=== PATIENT | male | born 1990 | race African-American/Black ===

== ENCOUNTER 2020-06-15 18:13 | Emergency (ER) | payer SELFPAY ==
[~2020-06-15] VITALS: Ht 185.4 cm; Wt 73.0 kg
[2020-06-15] MEDS ORDERED: PIPERACILLIN/TAZOBACTAM 4.5 GM in IV NORMAL SALINE 100ML 100 ML IV ONE (18:45)
[2020-06-15] MEDS ORDERED: DEXAMETHASONE SOD PHOS 20 MG/5 ML VIAL. IV ONE (18:45)
[2020-06-15] MEDS ORDERED: VANCOMYCIN PER PHARMACY MC ONE (18:45)
[2020-06-15] MEDS ORDERED: IV NORMAL SALINE 1000ML BAG 1,000 ML IV ONE ×2 (18:45→20:30)
[2020-06-15] MEDS ORDERED: ONDANSETRON PF 4 MG/2 ML VIAL. IVP ONE (18:45)
[2020-06-15] MEDS ORDERED: MORPHINE SULFATE 4 MG/ML VIAL. IV/SQ PRN (18:45)
--- NOTE | 2020-06-15 18:53 | PHYS DOC ---
Past Medical History Past Medical History: No Pertinent History Past Surgical History: No Surgical History Smoking Status: Never Smoker Alcohol Use: None General Adult EDM: Chief Complaint: DENTAL PROBLEM HPI: HPI: Patient is a 29 year old male who presents to the ED today complaining of dental abscess to the left lower gum, patient states on Wednesday which is 4 days ago he had an extraction of the left lower wisdom tooth at [facility]. He states the next day he noted some facial swelling on the left side, he states the swelling has progressively gotten worse and today he realized his left facial region is extremely swollen. Denies any fever. Reports difficulty opening the mouth fully because of the pain. Reports pain is moderate worse on opening the mouth. Denies anything relieving the pain. He states he is currently on amoxicillin with no relief. Review of Systems: Review of Systems: Constitutional: Denies fever or chills. [] Eyes: Denies change in visual acuity. [] HENT: Reports left facial swelling, dental abscess, denies nasal congestion or sore throat. [] Respiratory: Denies cough or shortness of breath. [] Cardiovascular: Denies chest pain or edema. [] GI: Denies abdominal pain, nausea, vomiting, bloody stools or diarrhea. [] : Denies dysuria. [] Musculoskeletal: Denies back pain or joint pain. [] Integument: Denies rash. [] Neurologic: Denies headache, focal weakness or sensory changes. [] Psychiatric: Denies depression or anxiety. [] Heart Score: Risk Factors: Risk Factors: DM, Current or recent (<one month) smoker, HTN, HLP, family history of CAD, obesity. Risk Scores: Score 0 - 3: 2.5% MACE over next 6 weeks - Discharge Home Score 4 - 6: 20.3% MACE over next 6 weeks - Admit for Clinical Observation Score 7 - 10: 72.7% MACE over next 6 weeks - Early Invasive Strategies Current Medications: Current Medications Medications (Trade) Dose Ordered Sig/Jimi Start Time Stop Time Status Last Admin Dose Admin Dexamethasone Sodium Phosphate (Decadron) 10 mg 1X ONCE 06/15/20 18:45 06/15/20 18:46 UNV Morphine Sulfate (Morphine Sulfate) 4 mg PRN Q15MIN PRN 06/15/20 18:45 06/16/20 18:44 UNV Ondansetron HCl (Zofran) 4 mg 1X ONCE 06/15/20 18:45 06/15/20 18:46 UNV Piperacillin Sod/ Tazobactam Sod 4.5 gm/Sodium Chloride 100 ml @ 200 mls/hr 1X ONCE 06/15/20 18:45 06/15/20 19:14 UNV Sodium Chloride 1,000 ml @ 1,000 mls/hr 1X ONCE 06/15/20 18:45 06/15/20 19:44 UNV Vancomycin HCl (Vanco Per Pharmacy) 1 each 1X ONCE 06/15/20 18:45 06/15/20 18:46 UNV Physical Exam: PE: Constitutional: Well developed, well nourished, no acute distress, non-toxic appearance. [] HENT: Normocephalic, atraumatic, bilateral external ears normal, oropharynx moist, no oral exudates, nose normal. [] Left facial region is moderately swollen. Patient unable to open his mouth fully due to the swelling and pain. Unable to examine left lower wisdom tooth extraction site Eyes: PERRLA, EOMI, conjunctiva normal, no discharge. [] Neck: Normal range of motion, no tenderness, supple, no stridor. [] Cardiovascular:Heart rate regular rhythm, no murmur [] Lungs & Thorax: Bilateral breath sounds clear to auscultation [] Abdomen: Bowel sounds normal, soft, no tenderness, no masses, no pulsatile masses. [] Skin: Warm, dry, no erythema, no rash. [] Back: No tenderness, no CVA tenderness. [] Extremities: No tenderness, no cyanosis, no clubbing, ROM intact, no edema. [] Neurologic: Alert and oriented X 3, normal motor function, normal sensory function, no focal deficits noted. [] Psychologic: Affect normal, judgement normal, mood normal. [] Current Patient Data: Vital Signs: Vital Signs Date Time Temp Pulse Resp B/P (MAP) Pulse Ox O2 Delivery O2 Flow Rate FiO2 06/15/20 18:30 99.3 78 16 129/76 (93) 99 Room Air 99.3 EKG: EKG: [] Radiology/Procedures: Radiology/Procedures: []PATIENT: BEA AGUIAR DACCOUNT: [id number]#: [id number] : 1990 LOCATION: ER AGE: 29 SEX: M EXAM STATUS: REG ER ORD. PHYSICIAN: ILIANA HEATH APRN REASON: dental abscess left side facial swelling after extraction on Wed. PROCEDURE: CT MAXILLOFACIAL W/CONTRAST CT of maxillofacial with contrast. HISTORY: Dental abscess left facial swelling after obstruction on Wednesday CT scan of the maxillofacial region was done using 75 mL Omnipaque 300 contrast. There is mild mucosal thickening in the right maxillary sinus. There is mucosal thickening in the right frontal sinus versus mucous retention cyst. There is no intraorbital swelling. There is extensive soft tissue swelling including a focal gas containing collection in the left cheek consistent with a large abscess measuring 4.7 x 3.2 x 4.7 cm. Air tracks along the left mandible. Air and swelling tracking along the left masseter muscle into the temporal region extracranially on the left. There is also soft tissue swelling at the tonsil on the left but an abscess at that location is not identified. IMPRESSION: 1. Extensive soft tissue swelling in the cheek on the left side with gas in the soft tissues consistent with the extensive infection. PQRS Compliance Statement: One or more of the following individualized dose reduction techniques were utilized for this examination: 1. Automated exposure control 2. Adjustment of the mA and/or kV according to patient size 3. Use of iterative reconstruction technique Electronically signed by: Terrell Judd MD (06/15/2020 8:22 PM) [facility] DICTATED and SIGNED BY: TERRELL JUDD MD DATE: 06/15/20 [id number] 0 Course & Med Decision Making: Course & Med Decision Making Pertinent Labs and Imaging studies reviewed. (See chart for details) This is a 29-year-old male patient presenting to the ED today with moderate swelling on the left facial region after having left lower wisdom tooth extrac bhavana 4 days ago. Patient has developed a dental abscess. Vitals on arrival to the ED temperature 99.3, heart rate 78, O2 sats 99% on room air, respirations 16, blood pressure 129/76. CBC with a WBC of 22.3 with a left shift, CMP with potassium of 3.3, lactic 1.5, procalcitonin 1.93. CT of the maxillofacial noted for extensive soft tissue swelling in the cheek on the left side with gas in the soft tissues consistent with the extensive infection. Patient has been given 2 L of IV fluids, Zosyn and vancomycin. Called [facility] regarding tx to their facility they state they do not have an oral surgeon and requested we tx to [place] Spoke with Dr. Rodriguez at [facility] who accepted patient in the ED. EMS will transport Dr. German Becerril Disclaimer: Jone Disclaimer: This electronic medical record was generated, in whole or in part, using a voice recognition dictation system. Departure Departure Impression: Primary Impression: Dental abscess Additional Impression: Sepsis Qualified Codes: A41.9 - Sepsis, unspecified organism Disposition: DC/TRF OTHER TYPE INSTITUTI Condition: STABLE Referrals: NO PCP (PCP) Date and Time of Reassessment Date: Jun 15, 2020 Time: 18:40 Fluid Challenge Is the fluid challenge complet: No IBW Target Volume Used: No BMI > 30: No Vital Signs Vital Signs: Vital Signs Date Time Temp Pulse Resp B/P (MAP) Pulse Ox O2 Delivery O2 Flow Rate FiO2 06/15/20 19:16 15 99 06/15/20 18:30 99.3 78 129/76 (93) Room Air 99.3 Temperature Source: Oral Respirations Respiratory Effort: Normal Respiratory Pattern: Normal Cardiovascular Pulse Rhythm: Regular Heart: Nml rate, reg. rhythm Lung Sounds Breath Sounds: Clear Capillary Refil Capillary Refill: Rt Hand > 3 seconds Peripheral Pulse Pulse Location: Monitor Pulse Strength: Normal (2+) Pulse Assessment Method: NIBP Integumentary Skin: Warm Skin Moisture: Clammy Skin Turgor: Normal Skin Color: warm Fingernail Color: WNL ILIANA HEATH INSTRUMENT/CONTROL TECHNICIAN Jun 15, 2020 18:53
[2020-06-15 19:09] LABS: BASO # 0.1 x10^3/uL (0.0-0.2); BASO % 0 % (0-3); EOS # 0.1 x10^3/uL (0.0-0.7); EOS % 1 % (0-3); HEMATOCRIT 41.4 % (39.0-53.0); HEMOGLOBIN 14.2 g/dL (13.0-17.5); LYMPH # 3.4 x10^3/uL (1.0-4.8); LYMPH % 16 % (24-48); MEAN CORPUSCULAR HEMOGLOBIN 30 pg (25-35); MEAN CORPUSCULAR HGB CONC 34 g/dL (31-37); MEAN CORPUSCULAR VOLUME 88 fL (79-100); MONO # 2.2 x10^3/uL (0.0-1.1); MONO % 10 % (0-9); NEUT # 16.4 x10^3/uL (1.8-7.7); NEUT % 74 % (31-73); PLATELET COUNT 383 x10^3/uL (140-400); RED BLOOD COUNT 4.72 x10^6/uL (4.30-5.70); RED CELL DISTRIBUTION WIDTH 15.2 % (11.5-14.5); WHITE BLOOD COUNT 22.3 x10^3/uL (4.0-11.0)
[2020-06-15 19:22] LABS: CALCIUM 9.2 mg/dL (8.5-10.1); CREATININE 1.1 mg/dL (0.7-1.3); GFR 95.8; POTASSIUM 3.3 mmol/L (3.5-5.1)
[2020-06-15 19:28] LABS: ALBUMIN 2.9 g/dL (3.4-5.0); ALBUMIN/GLOBULIN RATIO 0.6 (1.0-1.7); MAGNESIUM 2.1 mg/dL (1.8-2.4); TOTAL BILIRUBIN 1.3 mg/dL (0.2-1.0); TOTAL PROTEIN 7.8 g/dL (6.4-8.2)
[2020-06-15] MEDS ORDERED: IOHEXOL 300 MG/ML 100ML VIAL. IV ONE (19:45)
[2020-06-15 19:51] LABS: % BANDS 9 % (0-9); % BASOS 1 % (0-3); % EOS 1 % (0-5); % LYMPHS 16 % (24-48); % MONOS 4 % (0-10); % SEGS 69 % (35-66)
[2020-06-15 19:52] LABS: PLT ESTIMATE ADEQUATE (ADEQUATE); TOXIC GRANULATION SLIGHT; TOXIC VACUOLATION SLIGHT
[2020-06-15] MEDS ORDERED: VANCOMYCIN 1.75 GM in IV NORMAL SALINE 500ML BAG 500 ML IV ONE (20:00)
[2020-06-15] MEDS ORDERED: CONTRAST GIVEN. MC PRN (20:15)
--- NOTE | 2020-06-15 20:26 | RAD ---
CT of maxillofacial with contrast. HISTORY: Dental abscess left facial swelling after obstruction on Wednesday CT scan of the maxillofacial region was done using 75 mL Omnipaque 300 contrast. There is mild mucosa l thickening in the right maxillary sinus. There is mucosal thickening in the right frontal sinus majo constantin mucous retention cyst. There is no intraorbital swelling. There is extensive soft tissue swelling including a focal gas containing collection in the left cheek consistent with a large abscess measur ing 4.7 x 3.2 x 4.7 cm. Air tracks along the left mandible. Air and swelling tracking along the left masseter muscle into the temporal region extracranially on the left. There is also soft tissue swelli ng at the tonsil on the left but an abscess at that location is not identified. IMPRESSION: 1. Extensive soft tissue swelling in the cheek on the left side with gas in the soft tissues consiste nt with the extensive infection. PQRS Compliance Statement: One or more of the following individualized dose reduction techniques were utilized for this examinat ion: 1. Automated exposure control 2. Adjustment of the mA and/or kV according to patient size 3. Use of iterative reconstruction technique Electronically signed by: Terrell Judd MD (06/15/2020 8:22 PM) [facility]
[2020-06-15 21:45] VITALS: BP 124/68
[2020-06-16] MEDS ORDERED: IOHEXOL 300 MG/ML 100ML VIAL. ONE (00:44)
== END 2020-06-15 21:45 | disposition short-term general hospital (02) ==
LOC: ER 18:13
DX: A41.9 Sepsis, unspecified organism (principal); K04.7 Periapical abscess without sinus
CPT/HCPCS: 36415; 70487; 80053; 83605; 83735; 84145; 85007; 85025; 87040; 96365; 96367; 96375; 99285; J1100; J2270; J2405; J2543; J3370; J7030; J7040; Q9967